=== PATIENT | male | born 1955 | race Asian ===

== ENCOUNTER 2018-07-29 21:02 | Emergency (ER) | payer OTHER ==
[~2018-07-29] VITALS: Ht 167.6 cm; Wt 77.3 kg
[2018-07-29] MEDS ORDERED: AMIO200T44 PO (21:22)
[2018-07-29] MEDS ORDERED: ATOR10TA84 PO (21:22)
[2018-07-29 22:06] VITALS: BP 142/98
== END 2018-07-29 23:00 | disposition home or self-care (01) ==
LOC: EMS 21:04
DX: S70.12XA Contusion of left thigh, initial encounter (principal); E78.00 Pure hypercholesterolemia, unspecified; Z79.899 Other long term (current) drug therapy; I10 Essential (primary) hypertension; W54.8XXA Other contact with dog, initial encounter; Y93.89 Activity, other specified; Y92.89 Other specified places as the place of occurrence of the external cause; Y99.8 Other external cause status